=== PATIENT | female | born 1975 | race Caucasian/White ===

== ENCOUNTER 2016-07-24 15:00 | Emergency (ER) | payer MEDICAID ==
[2015-05-24 16:45] VITALS: BMI 23.6
[~2016-07-24 15:00] MED LIST: BACTRIM DS TABL1 TAB PO; COMBIVENT RESPIM4 GM INH; DOXYCYCLINE HY100 M2 PO; HYDROCODON-ACE1 EAC6 PO; HYDROCODONE-APA1 TAB PO; PROVENTIL/2.5 MG/3 M INH
[2016-07-24 19:20] LABS: BASOPHILS 0.3 % (0.0-2.0); EOSINOPHILS 1.2 % (0-7); HEMATOCRIT 40.5 % (36.0-48.0); HEMOGLOBIN 13.2 g/dL (12-16); IMMATURE GRANULOCYTES 0.2 % (0-5); LYMPHOCYTES 15.6 % (15-50); MCH 26.7 pg (26.0-34.0); MCHC 32.6 g/dL (31.0-37.0); MEAN PLATELET VOLUME 10.8 fL (7.4-10.4); MONOCYTES 12.9 % (2-11); NEUTROPHILS 69.8 % (40-80); RBC 4.94 10x6/uL (4.00-5.40); RDW 13.7 % (11.5-14.5); WBC 10.1 10x3/uL (4.8-10.8)
[2016-07-24 19:21] LABS: PLATELET COUNT 233 10x3/uL (130-400)
[2016-07-24 19:30] LABS: ALBUMIN 3.9 g/dL (3.4-5.0); ALKALINE PHOSPHATASE 101 U/L (46-116); ALT (SGPT) 32 U/L (10-68); BILIRUBIN - TOTAL 0.32 mg/dL (0.2-1.3); CALC OSMOLALITY 273 mosm/kg (275-300); CHLORIDE - SERUM 101 mmol/L (98-107); CREATININE - SERUM 0.8 mg/dL (0.6-1.3); GLUCOSE 91 mg/dL (74-106); PROTEIN - SERUM 7.5 g/dL (6.4-8.2); SODIUM 137 mmol/L (136-145); UREA NITROGEN 13 mg/dL (7-18); eGFR NON AFRICAN AMERICAN 83 mL/min (90-120)
== END 2016-07-24 20:25 | disposition home or self-care (01) ==
LOC: D.ER 15:00
PROVIDERS: Nurse Practitioner Family
DX: L03.116 Cellulitis of left lower limb (principal); M79.672 Pain in left foot; S99.922A Unspecified injury of left foot, initial encounter; W45.0XXA Nail entering through skin, initial encounter; Y93.89 Activity, other specified; Y92.89 Other specified places as the place of occurrence of the external cause; F17.200 Nicotine dependence, unspecified, uncomplicated; J44.9 Chronic obstructive pulmonary disease, unspecified

== ENCOUNTER 2017-11-09 12:04 | Emergency (ER) | payer OTHER ==
[2015-05-24 16:45] VITALS: BMI 23.6
== END 2017-11-09 12:32 | disposition left against medical advice (07) ==
LOC: D.ER 12:04
DX: K13.79 Other lesions of oral mucosa (principal)

== ENCOUNTER 2017-11-12 21:08 | Emergency (ER) | payer OTHER ==
[~2017-11-12] VITALS: Ht 149.9 cm; Wt 56.8 kg
[2017-11-12 21:14] VITALS: Ht 149.9 cm; Wt 56.8 kg
[2017-11-12] MEDS ORDERED: ZITHROMAX250 MG PO (23:37)
[2017-11-12] MEDS ORDERED: MEDROL DOSE PACK4 MG PO (23:37)
[2017-11-13 01:55] VITALS: BP 132/78
== END 2017-11-13 01:56 | disposition home or self-care (01) ==
LOC: D.ER 21:08
DX: J01.90 Acute sinusitis, unspecified (principal); J20.9 Acute bronchitis, unspecified; J44.9 Chronic obstructive pulmonary disease, unspecified; F17.200 Nicotine dependence, unspecified, uncomplicated

== ENCOUNTER 2018-04-21 22:50 | Emergency (ER) | payer OTHER ==
[~2018-04-21] VITALS: Ht 149.9 cm; Wt 53.2 kg
[~2018-04-21 22:50] MED LIST changes: +MEDROL DOSE PACK4 MG PO; +ZITHROMAX250 MG PO
[2018-04-21 23:05] VITALS: Ht 149.9 cm; Wt 53.2 kg
[2018-04-22] MEDS ORDERED: PROVENTIL/2.5 MG/3 M INH (00:35)
[2018-04-22] MEDS ORDERED: LEVAQUIN750 MG PO (00:35)
[2018-04-22] MEDS ORDERED: NORCO 7.5/325 T1 TA1 PO (00:35)
[2018-04-22 00:48] VITALS: BP 130/90
== END 2018-04-22 00:49 | disposition home or self-care (01) ==
LOC: D.ER 22:50
DX: J04.0 Acute laryngitis (principal); J44.1 Chronic obstructive pulmonary disease with (acute) exacerbation; J18.9 Pneumonia, unspecified organism; R05 Cough; R51 Headache; F17.200 Nicotine dependence, unspecified, uncomplicated

== ENCOUNTER 2018-04-25 11:40 | Emergency (ER) | payer SELFPAY ==
[~2018-04-25] VITALS: Ht 149.9 cm; Wt 53.2 kg
[~2018-04-25 11:40] MED LIST changes: +LEVAQUIN750 MG PO; +NORCO 7.5/325 T1 TA1 PO
[2018-04-25 12:18] VITALS: Ht 149.9 cm; Wt 53.2 kg
[2018-04-25 15:39] LABS: BASOPHILS 0.3 % (0-2); EOSINOPHILS 1.6 % (0-7); HEMATOCRIT 40.2 % (36.0-48.0); HEMOGLOBIN 13.3 g/dL (12-16); IMMATURE GRANULOCYTES 0.8 % (0-5); LYMPHOCYTES 33.6 % (15-50); MCHC 33.1 g/dL (31.0-37.0); MCV 84.6 fL (80.0-100.0); MEAN PLATELET VOLUME 10.6 fL (7.4-10.4); MONOCYTES 9.4 % (2-11); NEUTROPHILS 54.3 % (40-80); PLATELET COUNT 236 10x3/uL (130-400); RBC 4.75 10x6/uL (4.00-5.40); RDW 14.1 % (11.5-14.5)
[2018-04-25 15:54] LABS: INR 0.89 (0.85-1.17); PROTIME 11.6 SECONDS (11.6-15.0)
[2018-04-25 16:07] LABS: ALBUMIN 3.4 g/dL (3.4-5.0); ALKALINE PHOSPHATASE 83 U/L (46-116); ALT (SGPT) 18 U/L (10-68); BILIRUBIN - TOTAL 0.13 mg/dL (0.2-1.3); CALC OSMOLALITY 274 mosm/kg (275-300); CARBON DIOXIDE 25.7 mmol/L (21.0-32.0); CHLORIDE - SERUM 101 mmol/L (98-107); CKMB 0.4 U/L (0.0-3.6); CREATINE KINASE 58 UL (21-215); GLUCOSE 94 mg/dL (74-106); POTASSIUM - SERUM 4.3 mmol/L (3.5-5.1); SODIUM 138 mmol/L (136-145); TROPONIN-I < 0.017 ng/mL (0.000-0.060); UREA NITROGEN 11 mg/dL (7-18)
[2018-04-25 16:16] LABS: CALCIUM 8.7 mg/dL (8.5-10.1); CREATININE - SERUM 0.6 mg/dL (0.6-1.3); eGFR NON AFRICAN AMERICAN > 90 mL/min (90-120)
[2018-04-25] MEDS ORDERED: BENZONATATE200 MG PO (17:17)
[2018-04-25] MEDS ORDERED: PHENERGAN DM SYR5 ML PO (17:17)
[2018-04-25] MEDS ORDERED: CIPRO500 MG PO (17:17)
[2018-04-25 17:37] VITALS: BP 118/97
== END 2018-04-25 17:39 | disposition home or self-care (01) ==
LOC: D.ER 11:40
PROVIDERS: Family Medicine
DX: J06.9 Acute upper respiratory infection, unspecified (principal); J44.9 Chronic obstructive pulmonary disease, unspecified; F17.200 Nicotine dependence, unspecified, uncomplicated

== ENCOUNTER 2019-10-08 18:03 | Emergency (ER) | payer SELFPAY ==
[~2019-10-08] VITALS: Ht 149.9 cm; Wt 52.3 kg
[~2019-10-08 18:03] MED LIST changes: +BENZONATATE200 MG PO; +CIPRO500 MG PO; +PHENERGAN DM SYR5 ML PO
[2019-10-08 18:22] VITALS: Ht 149.9 cm; Wt 52.3 kg
[2019-10-08] MEDS ORDERED: ACETAMINOPHEN500 M1 PO (18:41)
[2019-10-08] MEDS ORDERED: KEFLEX500 MG PO (18:41)
[2019-10-08] MEDS ORDERED: CYCLOBENZAPRINE10 MG PO (18:41)
[2019-10-08] MEDS ORDERED: ORAL ANALGESIC9 GM TOPICAL (18:41)
[2019-10-08 20:28] VITALS: BP 140/91
== END 2019-10-08 19:18 | disposition home or self-care (01) ==
LOC: D.ER 18:03
DX: S02.5XXA Fracture of tooth (traumatic), initial encounter for closed fracture (principal); K08.89 Other specified disorders of teeth and supporting structures; R25.2 Cramp and spasm; K04.7 Periapical abscess without sinus; K02.9 Dental caries, unspecified; J44.9 Chronic obstructive pulmonary disease, unspecified